=== PATIENT | male | born 1980 | race Caucasian/White ===

== ENCOUNTER 2019-02-08 07:39 | Inpatient (IN) ==
[2019-02-08] MEDS ORDERED: BISMUTH SUBSALICYLATE PER ML OMNICELL CHARGE PO PRN (16:53)
[2019-02-08] MEDS ORDERED: MAGNESIUM HYDROXIDE SUSP 30 ML UDC PO PRN (16:53)
[2019-02-08] MEDS ORDERED: SODIUM CHLORIDE 0.65% NA SOLN 45 ML (OCEAN) PRN (16:53)
[2019-02-08] MEDS ORDERED: ALUMINUM/MAGNESIUM SUSP 30 ML UDC PO PRN (16:53)
[2019-02-08] MEDS ORDERED: ACETAMINOPHEN 325 MG TAB PO PRN (16:53)
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
--- NOTE | 2019-02-10 12:45 | Psychiatric Progress Note ---
Date of Service February 10, 2019 Impression / Recommendations Impression 38 y/o DWM w/ h/o bipolar I who was stable for 10 years on lithium, went off it last year, and is no longer in treatment. He presents with 6 months of worsening mood in context of mother's and relationship/financial stressors, and SI with an attempt to drink himself to . Is binge drinking on weekends, ALT elevated, and unconcerned about his mental health or substance abuse issues. Does not want to take medication and not motivated to participate in treatment due to severity of depression. He was agreeable to having outpatient therapy. Inpatient treatment is necessary due to severity of symptoms and the risk for suicide if discharged. (1) Bipolar 1 disorder: 02/09 - Current episode depressed, severe, without psychosis. Reviewed diagnosis and treatment recommendations, including medication and therapy. Recommend return to lithium as it was well tolerated and kept him stable for 10 years when he was on it, but he is declining, does not think he needs medication, and thinks his mood problems are due to stressors. - Gather collateral from brothers and schedule family meeting. - Recommend referral for outpatient therapist and psychiatrist. - Explore ways to increase supports. - Q 15 min checks for safety. Encourage group and therapy attendance and participation. 02/10 - Pt continues to decline initiation of psychiatric medications to target his mood. He is at least willing for therapy, and we discussed keeping medications as a consideration in discussing the option regularly with his therapist - Continue to encourage group participation - Encouraged to seek out one-to-one counseling as needed to process individual stressors - Schedule a family meeting with brother (2) Alcohol abuse: 02/09 - Last drank 02/07, denies h/o withdrawal, no withdrawal symptoms currently. Brief intervention was offered and accepted Intervention was greater than 5 min in length. Brief interventions include: 1. Assess Readiness to Quit, 2. Advise: Help Patient to Reduce or Abstain from Alcohol, 3. Agree: Set Specific, Feasible Goals, 4. Assist: Anticipate barriers, Problem-Solving Solutions. Social work to 5. Arrange: Referrals to appropriate treatment. Summary of intervention: The patient is in precontemplation stage with regards to transtheoretical model of change. The patient is advised to decrease alcohol consumption due to depressant effects and risk of interactions with prescription medications. The patient agreed to and will be provided with recovery materials to continue to education self on how to cope with their condition without drinking. Inventory Assets Strengths: Employed, responsible for young children, stable housing Needs: Mental health care, access to care (no insurance), sobriety Risk Factors Assessment Male: Yes : Yes Do You Have Access To A Gun?: No Health Problems: No Mental Health Diagnoses: Yes Substance Use Disorders: Yes Previous Attempt: Yes Family History of Suicide: No Previous Psychiatric Hospitalization: Yes Hopelessness: Yes Smoker: Yes Protective Factors Assessment Alevism Beliefs: Yes : No Responsible for Young Children: Yes Employed: Yes Stable Relationships: No Supportive Family: No Good Rapport with Provider: No Interval History Identifying Information NANDA MULLER is a 38-year-old M who currently lives in [place], has a history of bipolar disorder not currently in treatment, and was admitted on 02/08/19 16:45 on a 201 voluntary commitment after a suicide attempt by drinking alcohol. Chief Complaint "Yesterday was...I always say 'ok'...It was about usual, still feeling really down." Review of Systems Notes Constitutional: denied Cardiovascular: denied Respiratory: denied Gastrointestinal: denied Neurological: denied Psychiatric: denies symptoms other than stated above Total of at least 10 systems reviewed, pertinent positives as above and in HPI. Sleep Information Total Hours of Sleep: 6.5 Sleep Comments: pt on q-16 minute checks Meal Information Percent Meal Consumed - Breakfast: 100 Percent Meal Consumed - Lunch: 100 Percent Meal Consumed - Dinner: 100 Subjective Subjective Patient was seen & assessed and interval progress reviewed with treatment team. Staff reports the patient continued to verbalize hopelessness and limited motivation to live. He rated his mood a 3/10 and "just okay" last evening. Patient was willing to have a family meeting with his younger brother, but this has not yet been scheduled. Patient was seen today to assess progress since admission. He states that he is feeling "alright" today. He reports continuing to feel "down" and having difficulty processing some of the stressors leading to his admission. Patient states he did receive a visit last evening from his brother and a good friend, and found that his mood improved during and after their conversation. Patient was encouraged by his friend to "do not force anything", and give himself time to process his feelings. Patient admits that he continues to struggle with feeling as though his family does not understand the route of his mood issues. Patient states that he did have a call with his boss this morning, which "took the pressure off" of his job concerns. Patient admits he was worried that he would lose his job due to being unable to work. He was pleasantly surprised to find that his boss was encouraging him to take time, and would schedule him back to work whenever he felt ready. Patient states "my boss told me that he wished he would have asked more questions so he could have been there for me. I told him this was my fault not his, I always withdraw when I am not feeling well." Patient states that he has been benefiting from one-on-one conversations with counselors during his admission, feeling he is better able to process through stressors individually than in the group setting. Patient admits to ongoing passive suicidality, with "no motivation to live on." He denies other needs or concerns at this time, and was encouraged to continue to reach out to staff as needed throughout his admission. Physical Exam Psychiatric Orientation: alert, oriented x 3 and cooperative (And pleasant) Apperance: appropriately dressed (Casually, in T-shirt and jeans), appropriately groomed (Long hair and goatee, appears well groomed) and appeared stated age Eye Contact: good eye contact Motor Behavior: steady gait and station and no abnormal motor movements Speech: normal rate/rhythm/volume of speech (Monotone) Affect: + depressed affect and mood congruent with affect Mood: + depressed mood ("About usual, still really down") Thought Process: goal directed thought process, clear/coherent thought process and thought association intact Thought Content: reality based without delusions, + hopelessness and + worthlessness Suicidal Thoughts: + reports suicidal thoughts (Admits to ongoing passive SI) Patient states "I have no motivation to live on" Homicidal Thoughts: denies homicidal thoughts Hallucinations: no auditory hallucinations and no visual hallucinations Cognition: attention grossly intact and language grossly intact Insight: + fair insight Judgement: + fair judgement Vital Signs (Past 24 Hours) Last Vital Signs Temp 36.3 C L 02/10/19 07:04 Pulse 77 02/10/19 07:04 Resp 18 02/10/19 07:04 BP 122/83 02/10/19 07:04 Results & Data Current Inpatient Medications Current Inpatient Medications: Current Inpatient Medications Acetaminophen (Tylenol) 650 mg PO Q4H PRN PRN Reason: Headache or Minor Fever Stop: 03/10/19 16:52 Al Hydrox/Mg Hydrox/Simethicone (Maalox) 30 ml PO Q4H PRN PRN Reason: GI Upset Stop: 03/10/19 16:52 Bismuth Subsalicylate (Kaopectate) 15 ml PO PRN PRN PRN Reason: Loose Stool Stop: 03/10/19 16:52 Hydroxyzine HCl (Vistaril) 25 mg PO Q4H PRN PRN Reason: Anxiety Stop: 03/10/19 16:52 Hydroxyzine HCl (Vistaril) 50 mg PO HSZ PRN PRN Reason: Insomnia Stop: 03/10/19 16:52 Magnesium Hydroxide (Milk Of Magnesia) 30 ml PO DAILY PRN PRN Reason: Constipation Stop: 03/10/19 16:52 Sodium Chloride ([place] Nasal) 1 - 2 sprays NA PRN PRN PRN Reason: Nasal Dryness/Congestion Stop: 03/10/19 16:52
--- NOTE | 2019-02-11 13:01 | Psychiatric Progress Note ---
Date of Service February 11, 2019 Impression / Recommendations Impression 38 y/o DWM w/ h/o bipolar I who was stable for 10 years on lithium, went off it last year, and is no longer in treatment. He presents with 6 months of worsening mood in context of mother's and relationship/financial stressors, and SI with an attempt to drink himself to . Is binge drinking on weekends, ALT elevated, and unconcerned about his mental health or substance abuse issues. Does not want to take medication and not motivated to participate in treatment due to severity of depression. He was agreeable to having outpatient therapy. Inpatient treatment is necessary due to severity of symptoms and the risk for suicide if discharged. (1) Bipolar 1 disorder: 02/09 - Current episode depressed, severe, without psychosis. Reviewed diagnosis and treatment recommendations, including medication and therapy. Recommend return to lithium as it was well tolerated and kept him stable for 10 years when he was on it, but he is declining, does not think he needs medication, and thinks his mood problems are due to stressors. - Gather collateral from brothers and schedule family meeting. - Recommend referral for outpatient therapist and psychiatrist. - Explore ways to increase supports. - Q 15 min checks for safety. Encourage group and therapy attendance and participation. 02/10 - Pt continues to decline initiation of psychiatric medications to target his mood. He is at least willing for therapy, and we discussed keeping medications as a consideration in discussing the option regularly with his therapist - Continue to encourage group participation - Encouraged to seek out one-to-one counseling as needed to process individual stressors - Schedule a family meeting with brother 02/11 - Pt declining medications, but has been referred for therapy through [facility] - Continue to encourage group participation - Pt has been taking advantage of individual counseling - Family meeting scheduled with brother and good friend for tomorrow (2) Alcohol abuse: 02/09 - Last drank 02/07, denies h/o withdrawal, no withdrawal symptoms currently. Brief intervention was offered and accepted Intervention was greater than 5 min in length. Brief interventions include: 1. Assess Readiness to Quit, 2. Advise: Help Patient to Reduce or Abstain from Alcohol, 3. Agree: Set Specific, Feasible Goals, 4. Assist: Anticipate barriers, Problem-Solving Solutions. Social work to 5. Arrange: Referrals to appropriate treatment. Summary of intervention: The patient is in precontemplation stage with regards to transtheoretical model of change. The patient is advised to decrease alcohol consumption due to depressant effects and risk of interactions with prescription medications. The patient agreed to and will be provided with recovery materials to continue to education self on how to cope with their condition without drinking. 02/11 - Encourage that patient utilize outpatient therapy to address his tendency to utilize alcohol use as a coping strategy - Encourage processing of these thoughts and development of healthy coping strategies Inventory Assets Strengths: Employed, responsible for young children, stable housing Needs: Mental health care, access to care (no insurance), sobriety Risk Factors Assessment Male: Yes : Yes Do You Have Access To A Gun?: No Health Problems: No Mental Health Diagnoses: Yes Substance Use Disorders: Yes Previous Attempt: Yes Family History of Suicide: No Previous Psychiatric Hospitalization: Yes Hopelessness: Yes Smoker: Yes Protective Factors Assessment Islam Beliefs: Yes : No Responsible for Young Children: Yes Employed: Yes Stable Relationships: No Supportive Family: No Good Rapport with Provider: No Interval History Identifying Information NANDA MULLER is a 38-year-old M who currently lives in [place], has a history of bipolar disorder not currently in treatment, and was admitted on 02/08/19 16:45 on a 201 voluntary commitment after a suicide attempt by drinking alcohol. Chief Complaint "I would classify myself is actually good today." Review of Systems Notes Constitutional: denied Cardiovascular: denied Respiratory: denied Gastrointestinal: denied Neurological: denied Psychiatric: denies symptoms other than stated above Total of at least 10 systems reviewed, pertinent positives as above and in HPI. Sleep Information Total Hours of Sleep: 6 Sleep Comments: pt on q-16 minute checks Meal Information Percent Meal Consumed - Breakfast: 100 Percent Meal Consumed - Lunch: 100 Percent Meal Consumed - Dinner: 100 Subjective Subjective Patient was seen & assessed and interval progress reviewed with nursing and social work. Staff reports the patient has been reporting improvement in mood, rating his mood a 7/10 and "better" last evening. His is hoping to schedule a phone meeting with his brother and a close friend. Patient was seen today to assess progress since admission. He tells this provider that he would classify his mood as "actually good today." The patient states that he is noticing rather impressive improvement each day, stating "today was even better than yesterday. And yesterday was a good day." The patient shares with this provider that multiple "choices" have been opening up for him over the course of his admission. His brother had offered for [place] to [place] and reside with him, and his sisters [id number] was reportedly also looking to have someone helping him run the household. Patient states that he was surprised to have these options, but is pleased to know that he is taking steps towards reaching his overall goal. Patient states it is "hard for me to have long-term goals", as he states he is a very task oriented individual, wanting to cross off one task before completing another. He does admit that a dream of his is to own a [place]. Pt does admit that he is not having thoughts or urges to harm himself, but states "the desire to continue living may not quite be there yet." Overall, the patient does feel as though "I am moving toward being better." Pt denies other needs or concerns today. Physical Exam Psychiatric Orientation: alert, oriented x 3 and cooperative (and pleasant) Apperance: appropriately dressed (casually, in t-shirt and jeans), appropriately groomed and appeared stated age Eye Contact: good eye contact Motor Behavior: steady gait and station and no abnormal motor movements Speech: normal rate/rhythm/volume of speech Affect: + depressed affect (appearing subdued, but mildly more reactive, smiling a bit more) Mood: + depressed mood ("I feel like I'm moving toward being better") Thought Process: goal directed thought process, clear/coherent thought process and thought association intact Thought Content: reality based without delusions and + hopelessness (but lessening mildly) Suicidal Thoughts: denies suicidal thoughts (but states "desire to continue living may not be quite there yet") Homicidal Thoughts: denies homicidal thoughts Hallucinations: no auditory hallucinations and no visual hallucinations Cognition: attention grossly intact and language grossly intact Insight: + fair insight Judgement: + fair judgement Vital Signs (Past 24 Hours) Last Vital Signs Temp 36.4 C L 02/11/19 12:11 Pulse 69 02/11/19 12:11 Resp 18 02/11/19 12:11 BP 130/80 02/11/19 12:11 Results & Data Current Inpatient Medications Current Inpatient Medications: Current Inpatient Medications Acetaminophen (Tylenol) 650 mg PO Q4H PRN PRN Reason: Headache or Minor Fever Stop: 03/10/19 16:52 Al Hydrox/Mg Hydrox/Simethicone (Maalox) 30 ml PO Q4H PRN PRN Reason: GI Upset Stop: 03/10/19 16:52 Bismuth Subsalicylate (Kaopectate) 15 ml PO PRN PRN PRN Reason: Loose Stool Stop: 03/10/19 16:52 Hydroxyzine HCl (Vistaril) 25 mg PO Q4H PRN PRN Reason: Anxiety Stop: 03/10/19 16:52 Hydroxyzine HCl (Vistaril) 50 mg PO HSZ PRN PRN Reason: Insomnia Stop: 03/10/19 16:52 Magnesium Hydroxide (Milk Of Magnesia) 30 ml PO DAILY PRN PRN Reason: Constipation Stop: 03/10/19 16:52 Sodium Chloride ([place] Nasal) 1 - 2 sprays NA PRN PRN PRN Reason: Nasal Dryness/Congestion Stop: 03/10/19 16:52 Mental Health & Subst Abuse Tx Therapist Name of Therapist: Rick Loredo (intake appt. with services through [facility]) Therapist's (Juliette) Date of Therapist Appointment: 02/16/19 Time of Therapist Appointment: 11:00 Therapy Appointment Comment: [facility] [id number] Need to bring documents
--- NOTE | 2019-02-12 09:22 | Psychiatric Progress Note ---
Date of Service February 12, 2019 Impression / Recommendations Impression 38 y/o DWM w/ h/o bipolar I who was stable for 10 years on lithium, went off it last year, and is no longer in treatment. He presents with 6 months of worsening mood in context of mother's and relationship/financial stressors, and SI with an attempt to drink himself to . Is binge drinking on weekends, ALT elevated, and unconcerned about his mental health or substance abuse issues. Does not want to take medication and not motivated to participate in treatment due to severity of depression. He was agreeable to having outpatient therapy. He has been importing improvement in mood, family meeting with brother and close friend scheduled for tomorrow afternoon. Inpatient treatment is necessary due to severity of symptoms and the risk for suicide if discharged without adequate development of safety plan. (1) Bipolar 1 disorder: 02/09 - Current episode depressed, severe, without psychosis. Reviewed diagnosis and treatment recommendations, including medication and therapy. Recommend return to lithium as it was well tolerated and kept him stable for 10 years when he was on it, but he is declining, does not think he needs medication, and thinks his mood problems are due to stressors. - Gather collateral from brothers and schedule family meeting. - Recommend referral for outpatient therapist and psychiatrist. - Explore ways to increase supports. - Q 15 min checks for safety. Encourage group and therapy attendance and participation. 02/10 - Pt continues to decline initiation of psychiatric medications to target his mood. He is at least willing for therapy, and we discussed keeping medications as a consideration in discussing the option regularly with his therapist - Continue to encourage group participation - Encouraged to seek out one-to-one counseling as needed to process individual stressors - Schedule a family meeting with brother 02/11 - Pt declining medications, but has been referred for therapy through [facility] - Continue to encourage group participation - Pt has been taking advantage of individual counseling - Family meeting scheduled with brother and good friend for tomorrow 02/12 - Treatment plan as above, continuing to decline medications - Family meeting re-scheduled for tomorrow afternoon, consider discharge in the next day or so if improvement in mood remains consistent (2) Alcohol abuse: 02/09 - Last drank 02/07, denies h/o withdrawal, no withdrawal symptoms currently. Brief intervention was offered and accepted Intervention was greater than 5 min in length. Brief interventions include: 1. Assess Readiness to Quit, 2. Advise: Help Patient to Reduce or Abstain from Alcohol, 3. Agree: Set Specific, Feasible Goals, 4. Assist: Anticipate barriers, Problem-Solving Solutions. Social work to 5. Arrange: Referrals to appropriate treatment. Summary of intervention: The patient is in precontemplation stage with regards to transtheoretical model of change. The patient is advised to decrease alcohol consumption due to depressant effects and risk of interactions with prescription medications. The patient agreed to and will be provided with recovery materials to continue to education self on how to cope with their condition without drinking. 02/11 - Encourage that patient utilize outpatient therapy to address his tendency to utilize alcohol use as a coping strategy - Encourage processing of these thoughts and development of healthy coping strategies Inventory Assets Strengths: Employed, responsible for young children, stable housing Needs: Mental health care, access to care (no insurance), sobriety Risk Factors Assessment Male: Yes : Yes Do You Have Access To A Gun?: No Health Problems: No Mental Health Diagnoses: Yes Substance Use Disorders: Yes Previous Attempt: Yes Family History of Suicide: No Previous Psychiatric Hospitalization: Yes Hopelessness: Yes Smoker: Yes Protective Factors Assessment Voodoo Beliefs: Yes : No Responsible for Young Children: Yes Employed: Yes Stable Relationships: No Supportive Family: No Good Rapport with Provider: No Interval History Identifying Information NANDA MULLER is a 38-year-old M who currently lives in [place], has a history of bipolar disorder not currently in treatment, and was admitted on 02/08/19 16:45 on a 201 voluntary commitment after a suicide attempt by drinking alcohol. Chief Complaint "I definitely had a good day yesterday." Review of Systems Notes Constitutional: denied Cardiovascular: denied Respiratory: denied Gastrointestinal: denied Neurological: denied Psychiatric: denies symptoms other than stated above Total of at least 10 systems reviewed, pertinent positives as above and in HPI. Sleep Information Total Hours of Sleep: 6 Sleep Comments: pt on q-16 minute checks Meal Information Percent Meal Consumed - Breakfast: 100 Percent Meal Consumed - Lunch: 100 Percent Meal Consumed - Dinner: 100 Subjective Subjective Patient was seen & assessed and interval progress reviewed with treatment team. Staff report the patient has a meeting scheduled for tomorrow afternoon with his brother and friend. His condition seems to be improving, and he has been actively engaged in group programming. Pt was seen today to assess progress since admission. Pt states that he "definitely had a good day yesterday." He continues to receive multiple daily phone calls from outpatient supports. He states that he believes that he is improving overall, admitting to improvement in mood each day during his admission. 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 He also believes that listening to music or inspirational speakers would be helpful - and something he could still do while driving. Pt states that the most prominent thought on his mind presently is explaining to his daughters why he was in the hospital, and therefore unable to have custody of them for the weekend. While he admits he is "a bit nervous" about this conversation, he believes it will go well. Pt denies SI, as well as other needs or concerns today. Physical Exam Psychiatric Orientation: alert, oriented x 3 and cooperative (and pleasant) Apperance: appropriately dressed (casually, in t-shirt and camo pants), appropriately groomed (long hair and goatee, well-groomed and appearing clean) and appeared stated age Eye Contact: good eye contact Motor Behavior: steady gait and station and no abnormal motor movements Speech: normal rate/rhythm/volume of speech Affect: + blunted affect (not appearing overly depressed, somewhat more reactive in conversations) Mood: no depressed mood ("Feeling a lot better about everything") Thought Process: goal directed thought process, linear/logical thought process, clear/coherent thought process and thought association intact Thought Content: reality based without delusions; no hopelessness and no worthlessness Suicidal Thoughts: denies suicidal thoughts and denies suicidal intent Homicidal Thoughts: denies homicidal thoughts Hallucinations: no auditory hallucinations and no visual hallucinations Cognition: attention grossly intact and language grossly intact Insight: + fair insight Judgement: good judgement Vital Signs (Past 24 Hours) Last Vital Signs Temp 36.5 C 02/12/19 06:00 Pulse 74 02/12/19 06:37 Resp 17 02/12/19 06:00 BP 118/77 02/12/19 06:37 Results & Data Current Inpatient Medications Current Inpatient Medications: Current Inpatient Medications Acetaminophen (Tylenol) 650 mg PO Q4H PRN PRN Reason: Headache or Minor Fever Stop: 03/10/19 16:52 Last Admin: 02/11/19 22:20 Dose: 650 mg Documented by: Al Hydrox/Mg Hydrox/Simethicone (Maalox) 30 ml PO Q4H PRN PRN Reason: GI Upset Stop: 03/10/19 16:52 Bismuth Subsalicylate (Kaopectate) 15 ml PO PRN PRN PRN Reason: Loose Stool Stop: 03/10/19 16:52 Hydroxyzine HCl (Vistaril) 25 mg PO Q4H PRN PRN Reason: Anxiety Stop: 03/10/19 16:52 Hydroxyzine HCl (Vistaril) 50 mg PO HSZ PRN PRN Reason: Insomnia Stop: 03/10/19 16:52 Magnesium Hydroxide (Milk Of Magnesia) 30 ml PO DAILY PRN PRN Reason: Constipation Stop: 03/10/19 16:52 Sodium Chloride ([place] Nasal) 1 - 2 sprays NA PRN PRN PRN Reason: Nasal Dryness/Congestion Stop: 03/10/19 16:52 Mental Health & Subst Abuse Tx Psychiatrist Name of Psychiatrist: Declined. Therapist Name of Therapist: Rick Loredo (intake appt. with services through [facility]) Therapist's (Juliette) Date of Therapist Appointment: 02/16/19 Time of Therapist Appointment: 11:00am Therapy Appointment Comment: [facility] [id number] Need to bring documents Post Discharge Appointments Primary Care Physician Name Of Family Doctor: Declined. Contact Information Discharge Discharge Address: [address], [place] [id number]
[2019-02-13] MEDS ORDERED: DESTROY THIS MEDICATION ONE (13:45)
--- NOTE | 2019-02-13 17:42 | Discharge Summary ---
Date of Service February 13, 2019 History of Present Illness Patient presented to [facility] on 02/07/2019 via police, who had been called by the patient's brother after he sent text messages saying he was going to drink himself to and asking his brother to take care of his children. He reported drinking most weekends, and blood alcohol level was 102, with elevated ALT. He was hypertensive with a blood pressure 149/105. He was seen by [facility] crisis intervention in the ER, and reported that he was hoping to drink himself to , and wanted to go to sleep and not wake up. He said he was stressed because of "life." He was unable to contract for safety outside of the hospital, and agreed to voluntary hospitalization. He was accepted in our unit yesterday morning, but did not arrive until the evening. He was cooperative with the assessment upon arrival on our unit, reported depressed mood, with frequent suicidal thoughts and a desire to "not wake up." He reported multiple stressors, including financial strain (paying alimony and child support monthly), divorce in 2016, of his mother in July, and not feeling accepted by his family, especially his father. He was raised Mennonite, but does not practice currently. On my assessment, he reports he was drinking all day Friday, which he does when he is upset, "or just to relax." He is not sure how much he drank, but says it was "a lot." He has poor memory for some of the events while intoxicated, but recalls he "really did not want to wake up." He remembers texting his brother asking him to take care of his children, and then 2 of his brothers came over along with the police. He doesn't think his brothers knew how much he was struggling, saying he "is pretty good at keeping it hidden, don't like to talk about stuff." He reports mood has been low since his mother in July, and describes about half of his days as being "bad days." Mood is typically worse on the weekends because he is not working and "has time to sit and think," is alone on weekends when his children aren't there, and "usually leads to more drinking." Be started having suicidal thoughts over the past 1-2 months, when mood is "really low." Denies attempts other than this past Friday. Sleep is "pretty good," gets 5-8 hours, which he says is normal for him, and feels rested. Energy and motivation are low, interest is decreased, +anhedonia, but denies changes in appetite/weight. Denies irritability, anger outbursts, and HI. 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 Also struggles with divorce, states he still wants to be with ex-, but she doesn't want to reconcile. Reports h/o chuy in 2007 during period of high stress with family (felt they didn't accept him and his due to nonadherence to Mennonite beliefs), got arrested for damaging vehicles in a car lot, was in [facility] for a few days and then went to inpatient psychiatric unit, where he was started on lithium. He took it for 10 years but stopped it last year. Denies any other manic episodes. He does not believe he is depressed currently because of going off meds, and instead attributes his mood to his stressors. He does not want to take medication, but when asked what he'd like to do to address mood, he says he doesn't know and "I'm having a hard time caring about anything." He further states he is not concerned about his drinking, and likes it as it allows him to not think about his problems. Denies anxiety, PCD, PTSD, and pscychosis. Physical Exam Psychiatric Orientation: alert, oriented x 3 and cooperative Apperance: appropriately dressed (casually, in t-shirt and camo pants), appropriately groomed (long hair and goatee, well-groomed and appearing clean) and appeared stated age Eye Contact: good eye contact and + poor eye contact Motor Behavior: steady gait and station and no abnormal motor movements Speech: normal rate/rhythm/volume of speech Affect: euthymic affect and mood congruent with affect Mood: no depressed mood ("Feeling a lot better about everything") Thought Process: goal directed thought process, linear/logical thought process, clear/coherent thought process and thought association intact talkative Thought Content: reality based without delusions; no hopelessness and no worthlessness Suicidal Thoughts: denies suicidal thoughts and denies suicidal intent Homicidal Thoughts: denies homicidal thoughts Hallucinations: no auditory hallucinations and no visual hallucinations Cognition: recent memory grossly intact (except for events while intoxicated), attention grossly intact and language grossly intact insight improved and fair judgment improved and fair Vital Signs (Past 24 Hours) Last Vital Signs Temp 36.5 C 02/13/19 13:08 Pulse 69 02/13/19 13:08 Resp 18 02/13/19 13:08 BP 130/80 02/13/19 13:08 Principal Diagnosis Bipolar D/O Psychiatric Data Day of Discharge Assessment had family meeting with brother, in assessment with medical underwriter pt was forward thinking and focused on increasing his social support and building up his coping mechanisms and building up his life. Will stay with a mentor/peer, with aiming to work for him as well and engage with family that is supportive of him. He is aiming to limit alcohol usage to 1- 2 drinks occasionally only and we processed how he has used alcohol in past to self medicate his emotional tensions and would aim to not do so any further and if noticing urges to drink would check in and address his emotional tensions in other more constructive ways. Pt interested in aftercare of psychotherapy appts a he found that quite alleviating factoring the past.he has been refusing lithium or other psychotropic medications as believes it was the therapy and psychosocial changes to his life that helped him in the past. He thinks that he had a more agitated breakdown in the past that had some manic like aspects instead of truly having bipolar d/o and denied other times of having manic symptoms and thus does not eel that he needs lithium or other mood stabilizer medication. He is seeking discharge and is considered appropriate for discharge today with psychotherapy aftercare arranged Transition of Care Transition Of Care Record: was reviewed with the patient Advance Directives Advance Directives Information Provided: Yes Advance Directives: No Mental Health Advance Directive: No Advance Directives on File: No Living Will: No Power of Dry Cell Tester: No Advance Directives Reason:: Declines as Mental Health Visit. Risk Factors Assessment Male: Yes : Yes Do You Have Access To A Gun?: No Health Problems: No Mental Health Diagnoses: Yes Substance Use Disorders: Yes Previous Attempt: Yes Family History of Suicide: No Previous Psychiatric Hospitalization: Yes Hopelessness: Yes Smoker: Yes Protective Factors Assessment Jainism Beliefs: Yes : No Responsible for Young Children: Yes Employed: Yes Stable Relationships: No Supportive Family: No Good Rapport with Provider: No Tobacco Cessation at Discharge Tobacco Cessation Medication Prescribed at Discharge: Not Applicable/Non-Smoker Total Time Total Time Spent: Greater Than 30 Minutes Total Time Includes: Examination of the patient and Discharge Planning Hospital Course (1) Bipolar 1 disorder: 02/09 - Current episode depressed, severe, without psychosis. Reviewed diagnosis and treatment recommendations, including medication and therapy. Recommend return to lithium as it was well tolerated and kept him stable for 10 years when he was on it, but he is declining, does not think he needs medication, and thinks his mood problems are due to stressors. - Gather collateral from brothers and schedule family meeting. - Recommend referral for outpatient therapist and psychiatrist. - Explore ways to increase supports. - Q 15 min checks for safety. Encourage group and therapy attendance and participation. 02/10 - Pt continues to decline initiation of psychiatric medications to target his mood. He is at least willing for therapy, and we discussed keeping medications as a consideration in discussing the option regularly with his therapist - Continue to encourage group participation - Encouraged to seek out one-to-one counseling as needed to process individual stressors - Schedule a family meeting with brother 02/11 - Pt declining medications, but has been referred for therapy through [facility] - Continue to encourage group participation - Pt has been taking advantage of individual counseling - Family meeting scheduled with brother and good friend for tomorrow 02/12 - Treatment plan as above, continuing to decline medications - Family meeting re-scheduled for tomorrow afternoon, consider discharge in the next day or so if improvement in mood remains consistent (2) Alcohol abuse: 02/09 - Last drank 02/07, denies h/o withdrawal, no withdrawal symptoms currently. Brief intervention was offered and accepted Intervention was greater than 5 min in length. Brief interventions include: 1. Assess Readiness to Quit, 2. Advise: Help Patient to Reduce or Abstain from Alcohol, 3. Agree: Set Specific, Feasible Goals, 4. Assist: Anticipate barriers, Problem-Solving Solutions. Social work to 5. Arrange: Referrals to appropriate treatment. Summary of intervention: The patient is in precontemplation stage with regards to transtheoretical model of change. The patient is advised to decrease alcohol consumption due to depressant effects and risk of interactions with prescription medications. The patient agreed to and will be provided with recovery karla carranza to continue to education self on how to cope with their condition without drinking. 02/11 - Encourage that patient utilize outpatient therapy to address his tendency to utilize alcohol use as a coping strategy - Encourage processing of these thoughts and development of healthy coping strategies Mental Health & Subst Abuse Tx Psychiatrist Name of Psychiatrist: Declined. Therapist Name of Therapist: Rick Loredo (intake appt. with services through [facility]) Therapist's (Juliette) Date of Therapist Appointment: 02/16/19 Time of Therapist Appointment: 11:00 am Therapy Appointment Comment: [address] [id number] Need to bring documents Therapist Release of Information: Obtained, Reviewed and Signed Post Discharge Appointments Primary Care Physician Name Of Family Doctor: Declined. Home Health Services Home Health Services:: None Smoking Cessation Counseling Tobacco Cessation Medication Prescribed at Discharge: Not Applicable/Non-Smoker Contact Information Discharge Discharge Address: [facility] [address], [place] [address] Discharge Plan Discharge Items Patient Disposition: Home - Self-Care Reason For Visit: SI,DEPRESSION Discharge Diagnosis: Bipolar Disorder Activity: Resume your previous activity Non-emergency contact: Primary Care Provider, Wire Cutter and Therapist Call non-emergency contact if: your symptoms worsen Follow-up/Referrals: PCP,NO [Primary Care Provider] - Diet: Regular Addtl Attending Provider Instructions: SPECIAL CARE INSTRUCTIONS: 1. Follow through with your scheduled aftercare appointments. If unable to keep an appointment, please call to reschedule. 2. Take your medication only as prescribed. Medication should not be changed or stopped without the approval of your doctor. In the event of worsening symptoms or concerns about side effects, contact your doctor immediately. 3. Utilize new healthy coping skills, anger management skills, and stress management skills learned during your hospitalization. Journal feelings and process them with a support person. Identify stressors or situations that may result in relapse, deterioration or inappropriate behaviors and develop a plan to deal with those issues. 4. If your coping skills are ineffective and you are in crisis, contact your outpatient providers for direction. If unable to reach your providers, please call the CAN HELP LINE AT or go to the closest Emergency Room. 5. Avoid alcohol and un-prescribed drugs. 6. You have been provided with the Mental Health Advance Directives Pamphlet for your review. AFTERCARE APPOINTMENTS: * Please call your insurance company prior to your scheduled appointment to confirm your aftercare providers are covered. Take your insurance information to your appointments. WHO TO CALL AND WHEN: Medical Emergencies: For questions or emergencies related to your hospital stay, please contact the Inpatient Behavioral Health Unit at [phone]. A bowling alley manager is on-call 21/10 for the Behavioral Health Unit for emergencies At any time you feel your situation is an emergency, you may also call 911 immediately. Your Doctors Instructions noted above were prepared by provider Reymundo Hurst MD. Pending Studies at Discharge: No Stand-Alone Forms: [facility], Smoking Cessation Medications and DC Order Discharge Orders: Discharge Order (Routine); Ordered 02/13/19 Ordered By: Reymundo Hurst Admission Data Admit Date/Time: 02/08/19 16:45 Attending Provider: Sandra Aggarwal Admit Provider: Sandra Aggarwal Primary Care Provider: PCP,NO Other Interventions: Discharge Summary Assessment (RN) Last Done: 02/13/19 13:08 PSY Interdisciplinary Discharge Planning Last Done: 02/13/19 13:51 DC Date/Time DO NOT enter until pt leaves facility: 02/13/19 14:18 Coding Level of Care Code 73844 D/C day mgmt > 30 min Diagnoses Bipolar 1 disorder F31.9 Alcohol abuse F10.10
== END 2019-02-13 14:18 | disposition home or self-care (01) | DRG 885 ==
LOC: 3S 16:45